=== PATIENT | male | born 1980 | race Caucasian/White ===

== ENCOUNTER 2025-07-15 04:10 | Emergency (ER) | payer MEDICAID ==
[~2025-07-15] VITALS: Ht 167.6 cm; Wt 71.4 kg
[2025-07-15 04:18] VITALS: O2SAT 98
[2025-07-15 05:46] LABS: PLATELET COUNT (AUTO) 266 K/uL (150-450); RED BLOOD CELL COUNT(AUTO) 4.20 MIL/uL (4.50-5.90); RED CELL DISTRIBUTION WIDTH 14.7 % (11.5-14.5); WHITE BLOOD COUNT (AUTO) 5.8 K/uL (4.5-11.0)
[2025-07-15 05:59] LABS: CALCIUM, TOTAL 7.8 mg/dL (8.8-10.5); CREATININE 0.86 mg/dL (0.60-1.30); GLOMERULAR FILTR. RATE CALC > 60 mL/min (>60); GLUCOSE,RANDOM 128 mg/dL (70-110); SODIUM SERUM 136 mmol/L (136-145); UREA NITROGEN, BLOOD 11 mg/dL (7-18)
[2025-07-15 06:39] LABS: APPEARANCE,URINE CLEAR (CLEAR); GLUCOSE, URINE (UA) NEGATIVE (NEGATIVE); LEUKOCYTE ESTERASE ,URINE NEGATIVE (NEGATIVE); NITRATE,URINE NEGATIVE (NEGATIVE); OCCULT BLOOD,URINE NEGATIVE (NEGATIVE); PH,URINE DRUG SCREEN 5.5 (5.0-8.0); SPECIFIC GRAVITIY, URINE 1.029 (1.003-1.030)
[2025-07-15 06:44] LABS: ALCOHOL, URINE DRUG SCREEN NEGATIVE (NEGATIVE); AMPHET/METH SCREEN,URINE POSITIVE (NEGATIVE); BARBITURATE SCREEN, URINE NEGATIVE (NEGATIVE); CANNABINOID SCREEN,URINE POSITIVE (NEGATIVE); COCAINE SCREEN,URINE NEGATIVE (NEGATIVE); METHADONE SCREEN, URINE NEGATIVE (NEGATIVE)
[2025-07-15] MEDS: KETOROLAC TROMETHAMINE 60 MG/2 ML VIAL IM ONE (07:44)
[2025-07-15] MEDS ORDERED: PRED-554 PO (08:06)
[2025-07-15] MEDS ORDERED: DIPH50CA39 PO (08:06)
[2025-07-15] MEDS: POTASSIUM CHLORIDE 20 MEQ ER TABLET PO ONE (08:09)
[2025-07-15 08:22] VITALS: BP 121/74; PULSE 77; RESP 16; TEMP 98.1
== END 2025-07-15 08:24 | disposition home or self-care (01) ==
LOC: EMS 04:30
DX: R21 Rash and other nonspecific skin eruption (principal); L29.9 Pruritus, unspecified; F19.10 Other psychoactive substance abuse, uncomplicated; N20.0 Calculus of kidney; F12.90 Cannabis use, unspecified, uncomplicated; Z98.890 Other specified postprocedural states; Z79.899 Other long term (current) drug therapy
CPT/HCPCS: 99284; 80048; 85025; 36415; 96372; 80307; 81003; J1885; J7512